=== PATIENT | female | born 2000 | race African-American/Black ===

== ENCOUNTER 2019-11-08 17:07 | Inpatient (IN) | payer OTHER ==
[~2019-11-08] VITALS: Ht 162.6 cm; Wt 77.6 kg
[2019-11-08 17:52] LABS: AMNIO PT NEGATIVE
[2019-11-08] MEDS: IV RINGERS,LACTATED 1000ML 1,000 ML IV PRN ×2 (17:52→20:05)
[2019-11-08 17:55] LABS: BILIRUBIN,URINE NEGATIVE (NEG); CLARITY,URINE CLOUDY; COLOR,URINE YELLOW; NITRITE,URINE NEGATIVE (NEG); PH,URINE 7.5 (<5.0-8.0); PROTEIN,URINE NEGATIVE (NEG-TRACE)
[2019-11-08] MEDS ORDERED: IV RINGERS,LACTATED 1000ML 1,000 ML IV SCH (17:55)
[2019-11-08] MEDS ORDERED: IBUPROFEN 400 MG TABLET. PO PRN (18:00)
[2019-11-08] MEDS ORDERED: fentaNYL PF VIAL 100 MCG/2 ML VIAL IVP PRN (18:00)
[2019-11-08] MEDS ORDERED: TERBUTALINE 1 MG/ML VIAL. SQ PRN (18:00)
[2019-11-08] MEDS ORDERED: 0.9 % SODIUM CHLORIDE 10 ML DISP.SYRIN. IV PRN (18:00)
[2019-11-08] MEDS ORDERED: AMPICILLIN SODIUM 2 GM in IV NORMAL SALINE 100ML 100 ML IV ONE (18:00)
[2019-11-08] MEDS ORDERED: OXYTOCIN 30 UNIT/500 ML PREMIX 500 ML IV PRN (18:00)
[2019-11-08] MEDS ORDERED: LIDOCAINE 1% PF 30 ML VIAL. INJ PRN (18:00)
[2019-11-08 18:06] LABS: BACTERIA,URINE MANY /HPF (0-FEW); RBC,URINE OCC /HPF (0-2); SQUAMOUS EPITHELIAL CELL,UR MANY /LPF; WBC,URINE TNTC /HPF (0-4)
[2019-11-08 18:09] LABS: BASO % 0 % (0-3); EOS # 0.1 x10^3/uL (0.0-0.7); EOS % 1 % (0-3); HEMATOCRIT 27.7 % (36.0-47.0); HEMOGLOBIN 9.1 g/dL (12.0-15.5); LYMPH # 1.4 x10^3/uL (1.0-4.8); LYMPH % 12 % (24-48); MEAN CORPUSCULAR HEMOGLOBIN 29 pg (25-35); MEAN CORPUSCULAR HGB CONC 33 g/dL (31-37); MEAN CORPUSCULAR VOLUME 86 fL (79-100); MONO # 0.7 x10^3/uL (0.0-1.1); MONO % 5 % (0-9); NEUT # 10.1 x10^3/uL (1.8-7.7); NEUT % 82 % (31-73); PLATELET COUNT 168 x10^3/uL (140-400); RED CELL DISTRIBUTION WIDTH 13.8 % (11.5-14.5); WHITE BLOOD COUNT 12.2 x10^3/uL (4.0-11.0)
[2019-11-08 18:13] LABS: BARBITURATES NEG (NEG); BENZODIAZEPINES NEG (NEG); CANNABINOIDS NEG (NEG); COCAINE NEG (NEG); METHADONE NEG (NEG); OPIATES NEG (NEG); PHENCYCLIDINE NEG (NEG)
[2019-11-08 18:14] LABS: AMPHETAMINE/METHAMPHETAMINE NEG (NEG)
[2019-11-08] MEDS: BETAMET ACET&NA PHOS 30 MG/5 ML VIAL. IM SCH (18:48)
[2019-11-08] MEDS ORDERED: ACETAMINOPHEN 500 MG TABLET PO PRN (19:45)
[2019-11-08] MEDS: AMPICILLIN SODIUM 1 GM in IV NORMAL SALINE 50ML 50 ML IV SCH (22:35)
[2019-11-09] MEDS: IV RINGERS,LACTATED 1000ML 1,000 ML IV PRN ×2 (00:23→20:32)
[2019-11-09 00:36] VITALS: BP 133/74
[2019-11-09] MEDS: BUTORPHANOL 2 MG/ML VIAL. IVP PRN ×3 (01:18→06:11)
[2019-11-09] MEDS: AMPICILLIN SODIUM 1 GM in IV NORMAL SALINE 50ML 50 ML IV SCH ×2 (02:45→06:11)
[2019-11-09] MEDS ORDERED: OXYTOCIN PREMIX 30 UNIT/500 ML NS BAG. IV ONE (08:00)
[2019-11-09] MEDS ORDERED: PHENYLEPH/MINERAL OIL/PETROLAT RECTAL OINTMENT TUBE. RC PRN (08:45)
[2019-11-09] MEDS ORDERED: TDaP (Adacel) per PROTOCOL. MC PRN (08:45)
[2019-11-09] MEDS ORDERED: MAG HYDROX/ALUMINUM HYD/SIMETH 30 ML ORAL.SUSP PO PRN (08:45)
[2019-11-09] MEDS ORDERED: BENZOCAINE 20% TOPICAL AEROSOL SPRAY 57GM CAN. TP PRN (08:45)
[2019-11-09] MEDS ORDERED: MAGNESIUM HYDROXIDE 2,400 MG/30 ML ORAL.SUSP. PO PRN (08:45)
[2019-11-09] MEDS ORDERED: MMR per PROTOCOL. MC PRN (08:45)
[2019-11-09] MEDS ORDERED: HYDROCORTISONE 1% TOPICAL OINTMENT 30GM TUBE. TP PRN (08:45)
[2019-11-09] MEDS ORDERED: DOCUSATE SODIUM 100 MG CAPSULE. PO PRN (08:45)
[2019-11-09] MEDS ORDERED: oxyCODONE/APAP 5/325 1 TAB TABLET PO PRN (08:45)
[2019-11-09] MEDS ORDERED: 0.9 % SODIUM CHLORIDE 10 ML DISP.SYRIN. IV PRN (08:45)
[2019-11-09] MEDS ORDERED: ZOLPIDEM 5 MG TABLET. PO PRN (08:45)
[2019-11-09] MEDS ORDERED: SIMETHICONE 80 MG TAB.CHEW PO PRN (08:45)
[2019-11-09] MEDS ORDERED: IBUPROFEN 400 MG TABLET. PO PRN (08:45)
[2019-11-09] MEDS ORDERED: ACETAMINOPHEN 325 MG TABLET. PO PRN (08:45)
[2019-11-09] MEDS ORDERED: diphenhydrAMINE HCL 25 MG CAPSULE PO PRN (08:45)
--- NOTE | 2019-11-09 08:49 | PDOC1 ---
[facility] H&P Date of Admission: Date of Admission: Nov 08, 2019 at 17:07 History of Present Illness: EDC: 12/15/19 LMP: 03/24/19 HPI: 19y @ 34.6 by 27wk u/s (per pt) who presented to L&D on 11/07 with LOF and ctxs. On presentation the pt was found to be 1-2 cm dilated. Her amino swab returned neg. Since the pt was ctxing every 1-2 min she was observed overnight. At around 1230 am the pt had SROM. At that time she had progressed to 2 cm dilated. When I arrived to L&D this morning 8 cm. Along with the ctxs the pt also was experiencing right flank. A UA was equivocal. Since the pt was being txed for PTL with Ampicillin that should cover a UTI as well. The pt never established care. The pt states that she had no symptoms of so she never knew she was . When she finally did have realize she may be she went to [facility]. She had an u/s that she was told that she was 27wks with an EDC of 12/15/19. She discussed adoption with them. She had her first visit scheduled for later this week. Past Medical History: PMH: PMH: Denies OBHx: G1 FH: noncontributory Past Surgical History: PSH: Denies Social History: Smoke: No ALCOHOL: none (1-2 cigs/day) Drugs: None Medications: Meds: Current Medications Medications (Trade) Dose Ordered Sig/Nolan Route PRN Reason Start Time Stop Time Status Last Admin Dose Admin Ampicillin Sodium 1 gm/Sodium Chloride 50 ml @ 100 mls/hr Q4H IV 11/08/19 22:00 11/09/19 06:11 Allergies: Coded Allergies: No Known Drug Allergies (Unverified , 11/08/19) Physical Exam: Vital Signs: Vital Signs Date Time Temp Pulse Resp B/P (MAP) Pulse Ox O2 Delivery O2 Flow Rate FiO2 11/09/19 06:11 18 Room Air 11/09/19 02:40 99 11/09/19 00:36 98.2 69 133/74 (93) 98.2 PE: GENERAL: No apparent distress. Alert and oriented. HEENT: Head normocephalic, atraumatic. NECK: Supple LUNGS: Clear to auscultation. HEART: RRR, S1, S2 present, pulses intact ABDOMEN: Soft, positive bowel sounds. BACK: Right flank pain EXTREMITIES: No cyanosis or edema. NEUROLOGIC: Normal speech, normal tone PSYCHIATRIC: Normal affect, normal mood. SKIN: No ulceration. FHT: 130s +acels/no decels/mLTV [place]: 1-2 min SVE: 8/C/0 Labs: Laboratory Tests Test 11/08/19 17:25 11/08/19 17:30 11/08/19 17:45 Urine Collection Type Unknown Urine Color Yellow Urine Clarity Cloudy Urine pH 7.5 (<5.0-8.0) Urine Specific Orange 1.020 (1.000-1.030) Urine Protein Negative mg/dL (NEG-TRACE) Urine Glucose (UA) Negative mg/dL (NEG) Urine Ketones (Stick) >=80 mg/dL (NEG) Urine Blood Negative (NEG) Urine Nitrite Negative (NEG) Urine Bilirubin Negative (NEG) Urine Urobilinogen Dipstick 1.0 mg/dL (0.2 mg/dL) Urine Leukocyte Esterase Moderate (NEG) Urine RBC Occ /HPF (0-2) Urine WBC Tntc /HPF (0-4) Urine Squamous Epithelial Cells Many /LPF Urine Bacteria Many /HPF (0-FEW) Urine Mucus Mod /LPF Urine Opiates Screen Neg (NEG) Urine Methadone Screen Neg (NEG) Urine Barbiturates Neg (NEG) Urine Phencyclidine Screen Neg (NEG) Urine Amphetamine/Methamphetamine Neg (NEG) Urine Benzodiazepines Screen Neg (NEG) Urine Cocaine Screen Neg (NEG) Urine Cannabinoids Screen Neg (NEG) Urine Ethyl Alcohol Neg (NEG) Amniotic Fluid Swab Test Negative White Blood Count 12.2 x10^3/uL (4.0-11.0) H Red Blood Count 3.20 x10^6/uL (3.50-5.40) L Hemoglobin 9.1 g/dL (12.0-15.5) L Hematocrit 27.7 % (36.0-47.0) L Mean Corpuscular Volume 86 fL (79-100) Mean Corpuscular Hemoglobin 29 pg (25-35) Mean Corpuscular Hemoglobin Concent 33 g/dL (31-37) Red Cell Distribution Width 13.8 % (11.5-14.5) Platelet Count 168 x10^3/uL (140-400) Neutrophils (%) (Auto) 82 % (31-73) H Lymphocytes (%) (Auto) 12 % (24-48) L Monocytes (%) (Auto) 5 % (0-9) Eosinophils (%) (Auto) 1 % (0-3) Basophils (%) (Auto) 0 % (0-3) Neutrophils # (Auto) 10.1 x10^3/uL (1.8-7.7) H Lymphocytes # (Auto) 1.4 x10^3/uL (1.0-4.8) Monocytes # (Auto) 0.7 x10^3/uL (0.0-1.1) Eosinophils # (Auto) 0.1 x10^3/uL (0.0-0.7) Basophils # (Auto) 0.0 x10^3/uL (0.0-0.2) Treponema pallidum Antibody Nonreactive (Nonreactive) Hepatitis B Surface Antigen Nonreactive (Nonreactive) Hepatitis C IgG Antibody Pending Laboratory Tests 11/08/19 17:45 Laboratory Tests 11/08/19 17:45 Assessment & Plan: A/P 19y @ 34.6 by 27wk u/s 1.) PTL vs PTC no cervical change room attendant the first few hours of admission, since regularly ctxing was admitted for steroid course, over the night the pt transitioned to active labor, SROM at ~1230 2.) Right flank pain UA equivocal, no WBC, no f/c, will not continue abx after delivery unless cx returns positive 3.) No care drop in labs ordered 4.) Fetus cat I FHT, vtx, BSUS performed revealing a gestational age of 35- 36wks, BMTZ #1 @ 1830 5.) GBS unk on Amp for PTL 6.) Adoption WOOD GOLDMAN MD Nov 09, 2019 08:49
--- NOTE | 2019-11-09 08:55 | PDOC ---
VAGINAL DELIVERY DATE DATE: 11/09/19 TIME: 08:54 WEIGHT Weight [ ] DIAGNOSIS Patient delivered a viable female over intact perineum at 1822. Infant bulb suctioned at perineum. Cord double clamped and cut and infant handed to waiting RN. Wt 5lb 10oz. Apgars 8/9. Placenta delivered spontaneously, intact with 3VC. No lacerations noted. 20U of Pitocin infused with IVF. EBL 200cc. Cord ABG pending WOOD GOLDMAN MD Nov 09, 2019 08:55
[2019-11-09] MEDS ORDERED: OXYTOCIN 30 UNIT/500 ML PREMIX 500 ML IV PRN (09:00)
[2019-11-09 10:35] VITALS: BP 125/71
[2019-11-09 11:40] VITALS: BP 111/60
--- NOTE | 2019-11-09 15:20 | NUR ---
SS following up with referral regarding "plans to place baby for adoption." SS met with mother and Conchis Meyers, , from [facility]. Mother reported that is being placed for adoption. Adoptive parents, Shasta and Ac, driving to hospital from [place]. Conchis Meyers notified that we will need appropriate legal documents for infants chart prior to being released to adoptive parents. Conchis working to obtain needed legal documents from engineering pattern[employer]. SS will continue to follow.
[2019-11-09 15:33] VITALS: BP 117/54
[2019-11-09 16:20] VITALS: BP 119/53
[2019-11-09] MEDS: BETAMET ACET&NA PHOS 30 MG/5 ML VIAL. IM SCH (18:30)
[2019-11-10 03:58] VITALS: BP 108/47
[2019-11-10 05:30] VITALS: BP 115/51
[2019-11-10 05:39] LABS: HEMATOCRIT 22.5 % (36.0-47.0); HEMOGLOBIN 7.4 g/dL (12.0-15.5)
--- NOTE | 2019-11-10 10:09 | NUR ---
SS following up with adoption. SS met with mother and color specialist, Conchis Meyers, . SS was provided with parental relinquishment of rights, power of area representative and temporary custody papers for adoptive parents, Jacqueline Solorio, and adoption agency agreement. Copies placed in mother and chart. Adoptive parents currently boarding. SS will continue to follow as needed.
[2019-11-10] MEDS ORDERED: FERR325T14 PO (11:05)
[2019-11-10] MEDS ORDERED: IBUP-1060 PO (11:05)
[2019-11-10] MEDS ORDERED: DOCU-109 PO (11:05)
--- NOTE | 2019-11-10 11:35 | PDOC ---
SENIOR SALES ASSISTANT PROGRESS NOTE Subjective: Pt with good pain control. Halie PO. Voiding. Minimal lochia. The pt states flank pain no longer present. Denies f/c Objective: Objective: FFNT below umb no C/C/E Vital Signs: Vital Signs Date Time Temp Pulse Resp B/P (MAP) Pulse Ox O2 Delivery O2 Flow Rate FiO2 11/09/19 10:35 98.3 61 18 125/71 (89) 99 98.3 11/09/19 20:15 Room Air Vital Signs Date Time Temp Pulse Resp B/P (MAP) Pulse Ox O2 Delivery O2 Flow Rate FiO2 11/10/19 05:30 97.9 68 18 115/51 (72) 98 Room Air 97.9 Labs: Laboratory Tests Test 11/10/19 04:45 Hemoglobin 7.4 g/dL (12.0-15.5) L Hematocrit 22.5 % (36.0-47.0) L Mean Corpuscular Hemoglobin Concent 33 g/dL (31-37) Laboratory Tests 11/10/19 04:45 Laboratory Tests 11/10/19 04:45 Physical Exam: GENERAL: No apparent distress. Alert and oriented. HEENT: Head normocephalic, atraumatic. NECK: Supple LUNGS: Clear to auscultation. HEART: RRR, S1, S2 present, pulses intact ABDOMEN: Soft, positive bowel sounds. EXTREMITIES: No cyanosis or edema. NEUROLOGIC: Normal speech, normal tone PSYCHIATRIC: Normal affect, normal mood. SKIN: No ulceration. Assessment & Plan: A/P 19y PPD #1 s/p at 34.6 1.) PP - doing well 2.) Right flank pain pain resolved, UA equivocal, no WBC, no f/c, UCx pending 3.) No care 4.) Adoption - paperwork complete 5.) D/c home WOOD GOLDMAN MD Nov 10, 2019 11:35
--- NOTE | 2019-11-10 11:38 | NUR ---
Discharge Discharge instructions given to patient and friend. To follow up in [address] Villa. Patient ambulated off unit with all belongings.
--- NOTE | 2019-11-10 16:09 | DS ---
DATE OF DISCHARGE: 11/10/2019 ADMISSION DIAGNOSES: 1. Intrauterine at 34 weeks and 5 days by 27-week ultrasound. 2. labor versus contractions. 3. Right flank pain. 4. No care. 5. GBS unknown. 6. Plans for adoption. DISCHARGE DIAGNOSES: 1. Intrauterine at 34 weeks and 5 days by 27-week ultrasound. 2. labor. 3. Right flank pain, resolved. 4. No care. 5. GBS unknown. 6. Plans for adoption PROCEDURE: Spontaneous vaginal delivery. BRIEF HOSPITAL COURSE: The patient is a 19-year-old 1, para 0, who presented to Labor and Delivery at 34 weeks and 5 days by 27-week ultrasound with leakage of fluid and contractions. On presentation, the patient was found to be 1-2 cm dilated and an amnio swab was performed, which ultimately returned negative. The patient was blessing every 1-2 minutes. So, even though she was not changing, it was felt that there was a good potential that the patient might be in latent labor. So, the patient was given a dose of steroids as well as monitored over the night. Around 12:30 a.m., the patient had spontaneous rupture of membranes and progressed to 2. Over the course of the night, the patient progressed well and ultimately delivered by vaginal delivery the following morning. Of note, on admission, the patient was experiencing some right flank plain. A UA was sent, which returned equivocal. The possibility of a UTI or pyelonephritis was covered with ampicillin during the course of her labor. Since the symptoms resolved and she remained without white count or any fevers or chills, the ampicillin was continued after delivery. Her urine culture had not returned by the time of her discharge time, so was to be followed up on as an outpatient. Also of note, the patient had no care throughout the . [facility] had [facility] and she was given an EDC of 12/15/2019, which was roughly by a 27-week ultrasound. A bedside ultrasound was performed on admission, and she was measuring about 35-36 weeks. By day #1, the patient was meeting all discharge criteria and since she has given the baby up for adoption, desired to go home. The patient was subsequently discharged home. DISCHARGE INSTRUCTIONS: The patient was told not to lift anything greater than 20 pounds, have pelvic rest for 6 weeks. The patient is to call if she had fevers, chills, nausea, vomiting, abdominal pain or any additional questions or concerns. FOLLOWUP APPOINTMENT: The patient was to follow up with Dr. Goldman for a appointment on 12/23/2019 at 1:30 p.m. DISCHARGE MEDICATIONS: The patient was given a prescription for Motrin 800 mg 30 pills, ferrous sulfate 325 mg 30 pills and Colace 100 mg 30 pills. WOOD GOLDMAN MD DR: RAMYA/nts JOB#: [id number] / [id number]
--- NOTE | 2019-11-12 11:07 | PATHOLOGY ---
[facility] Accession Number: [id number] . 01 Material submitted: . placenta - PLACENTA AND CORD . 01 Clinical history: . Spontaneous vaginal delivery L1, labor, 34.6 weeks No care EDC: 12/15/2019 8, 9, 9 . 02 Diagnosis: 426 gram late placenta of an estimated 35 weeks gestation with attached membranes and umbilical cord: - No significant pathologic abnormalities. LBQ 11/11/2019 1733 Local . 02 Comment: There is no evidence of an acute chorioamnionitis or villitis. There are no infarcts. (JPM/db; 11/11/2019) . 02 Electronically signed: . Blaze Sharma MD, Pathologist NPI- [id number] . 01 Gross description: . The specimen is received in formalin labeled "Li, Katie, placenta and cord" and consists of a circular melgoza placenta measuring 15.8 x 14.8 x 3.0 cm and weighing 426 g after removal of membranes and umbilical cord. The membranes are pink-tolbert, thin, and translucent with a small amount of retro-membranous clot. The surface is bluegray and well vascularized with an eccentrically inserted 3 vessel umbilical cord, 3.5 cm from edge. The cord measures 13.3 cm in length and up to 1.0 cm in diameter showing moderate twists and no true knots. The maternal surface shows complete and intact cotyledons with a small amount of adherent blood clot. Sectioning reveals a maroon-red and spongy parenchyma with no gross lesions. Videographer sections are submitted as follows: . A1: Surface vessels and umbilical cord A2: Umbilical cord and membrane rolls A3-A4 full-thickness sections (SDY; 11/10/2019) SYU/SYU 11/10/2019 1556 Local . 02 Pathologist provided ICD-10: O80, Z37.0, Z3A.34 . 02 CPT . 741981 Specimen Comment: A courtesy copy of this report has been sent to [phone] Specimen Comment: Report sent to Performed at: [address], [place] [id number] MD Ramses Rodriguez MD Phone: [phone] Performed at: [address] [facility] [address] [place], [place] [id number] MD Blaze Sharma MD Phone: [phone]
== END 2019-11-10 11:47 | disposition home or self-care (01) | DRG 805 ==
LOC: OBSVTOIN 17:07 → 3 SO LND 17:07 → 3 NORTH 11-09 11:26
PROVIDERS: ADMIT Obstetrics & Gynecology; ATTEND Obstetrics & Gynecology
PROC: 10E0XZZ Delivery of Products of Conception, External Approach (ICD-10-PCS; principal; 2019-11-10)
DX: O42.913 Preterm premature rupture of membranes, unspecified as to length of time between rupture and onset of labor, third trimester (principal); O60.14X0 Preterm labor third trimester with preterm delivery third trimester, not applicable or unspecified; Z37.0 Single live birth; O23.43 Unspecified infection of urinary tract in pregnancy, third trimester; O99.334 Smoking (tobacco) complicating childbirth; F17.210 Nicotine dependence, cigarettes, uncomplicated; Z3A.34 34 weeks gestation of pregnancy
CPT/HCPCS: 36415; 80307; 81001; 84112; 85014; 85018; 85025; 86592; 86703; 86762; 86803; 86850; 86900; 86901; 87086; 87340; 87653; 99285; J0290; J0595; J0702; J2590; J3010; J7120; G0378

== ENCOUNTER 2020-01-21 14:17 | Emergency (ER) | payer OTHER ==
[~2020-01-21] VITALS: Ht 162.6 cm; Wt 71.3 kg
[~2020-01-21 14:17] MED LIST: DOCU-109 PO; FERR325T14 PO; IBUP-1060 PO
--- NOTE | 2020-01-21 15:06 | PHYS DOC ---
Past Medical History Past Medical History: No Pertinent History Past Surgical History: No Surgical History Smoking Status: Never Smoker Alcohol Use: None General Adult EDM: Chief Complaint: DIZZY/LIGHT HEADED HPI: HPI: Patient is a 19 year old female who presents with dizziness and chest pain while she was working earlier today. Patient is 2 months . She has had this 1 previous time 5 months ago. She is now feeling back to normal. She felt like she was in a pass out and had chest tightness and shortness of breath. She denies any swelling. She denies any recent illnesses. She does not have any URI symptoms, fever, chills, shortness of breath, neck pain, headache. Review of Systems: Review of Systems: General: Denies fever, chills, sweats, fatigue Eyes: Denies drainage, blurred vision, eye redness HENT: Denies rhinorrhea, sore throat, earache Respiratory: Denies cough, shortness of breath, wheezing Cardiac: Denies edema, palpitation. Reports chest pain GI: Denies abdominal pain, Nausea, vomiting MSK: Denies back pain, neck pain Skin: Denies rash, jaundice Neuro: Denies headache.reports dizziness Psychiatric: Denies SI/HI Heart Score: Risk Factors: Risk Factors: DM, Current or recent (<one month) smoker, HTN, HLP, family history of CAD, obesity. Risk Scores: Score 0 - 3: 2.5% MACE over next 6 weeks - Discharge Home Score 4 - 6: 20.3% MACE over next 6 weeks - Admit for Clinical Observation Score 7 - 10: 72.7% MACE over next 6 weeks - Early Invasive Strategies Allergies: Allergies: Allergies Coded Allergies Type Severity Reaction Last Updated Verified No Known Drug Allergies 11/08/19 No Physical Exam: PE: General: Awake, alert, NAD. Well Nourished, well hydrated. Cooperative HEENT: Atraumatic, EOMI, PERRL, airway patent, moist oral mucosa Neck: Supple, trachea midline Respiratory: CTA bilaterally, normal effort, no wheezing/crackles CV: RRR, no murmur, cap refill <2 GI: Soft, nondistended, nontender, no masses MSK: No obvious deformities Skin: Warm, dry, intact Neuro: A&O x3, speech NL, sensory and motor grossly intact, no focal deficits Psych: Normal affect, normal mood, not suicidal or homicidal Current Patient Data: Vital Signs: Vital Signs Date Time Temp Pulse Resp B/P (MAP) Pulse Ox O2 Delivery O2 Flow Rate FiO2 01/21/20 14:17 98.2 67 14 135/85 (102) 100 Room Air 98.2 EKG: EKG: [] Radiology/Procedures: Radiology/Procedures: [] Course & Med Decision Making: Course & Med Decision Making Pertinent Labs and Imaging studies reviewed. (See chart for details) Patient is 19-year-old female presents to the emergency room after having an episode of chest tightness and dizziness. Patient is feeling much better at this time. Exam is benign. She is 2 months so her cardiac work-up was done. Chest x-ray was normal. Troponin and BNP are negative. Patient does not appear to have cardiomyopathy. This was likely a panic attack. Patient's test results and vitals while in the ED were fully reviewed and discussed with the patient. Patient is stable and at this time does not need admission to the hospital. We have discussed strict return precautions and the importance of following up with their Primary Care Physician. Patient stated understanding and was given an opportunity to ask any questions. Patient is in agreement with plan. Dragon Disclaimer: Dragon Disclaimer: This electronic medical record was generated, in whole or in part, using a voice recognition dictation system. Departure Departure Impression: Primary Impression: Dizziness Additional Impression: Chest pain Disposition: 01 HOME, SELF-CARE Condition: GOOD Referrals: NO PCP (PCP) Patient Instructions: Chest Pain (Nonspecific) Justicifation of Admission Dx: Justifications for Admission: Justification of Admission Dx: No ATIF MANE MD Jan 21, 2020 15:06
--- NOTE | 2020-01-21 15:24 | EKG ---
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
[2020-01-21 15:32] LABS: BASO % 0 % (0-3); EOS # 0.2 x10^3/uL (0.0-0.7); EOS % 2 % (0-3); HEMATOCRIT 32.9 % (36.0-47.0); HEMOGLOBIN 11.2 g/dL (12.0-15.5); LYMPH # 2.4 x10^3/uL (1.0-4.8); LYMPH % 31 % (24-48); MEAN CORPUSCULAR HEMOGLOBIN 27 pg (25-35); MEAN CORPUSCULAR HGB CONC 34 g/dL (31-37); MEAN CORPUSCULAR VOLUME 79 fL (79-100); MONO # 0.6 x10^3/uL (0.0-1.1); MONO % 8 % (0-9); NEUT # 4.5 x10^3/uL (1.8-7.7); NEUT % 59 % (31-73); PLATELET COUNT 388 x10^3/uL (140-400); RED BLOOD COUNT 4.17 x10^6/uL (3.50-5.40); RED CELL DISTRIBUTION WIDTH 15.8 % (11.5-14.5); WHITE BLOOD COUNT 7.7 x10^3/uL (4.0-11.0)
[2020-01-21 15:43] LABS: CALCIUM 8.8 mg/dL (8.5-10.1); CREATININE 0.9 mg/dL (0.6-1.0); GFR 96.6; POTASSIUM 3.4 mmol/L (3.5-5.1)
--- NOTE | 2020-01-21 15:55 | RAD ---
PA and lateral chest. HISTORY: Chest pain PA and lateral views were taken of the chest. Lungs are clear. Heart is normal in size. There is no pleural effusion. IMPRESSION: 1. No acute chest disease. Electronically signed by: Imer Estes MD (01/21/2020 3:52 PM) [facility]
[2020-01-21 16:16] LABS: BILIRUBIN,URINE NEGATIVE (NEG); CLARITY,URINE CLEAR; COLOR,URINE YELLOW; NITRITE,URINE NEGATIVE (NEG); PH,URINE 6.5 (<5.0-8.0); PROTEIN,URINE NEGATIVE (NEG-TRACE)
[2020-01-21 16:32] LABS: BACTERIA,URINE MOD /HPF (0-FEW); RBC,URINE 0 /HPF (0-2); SQUAMOUS EPITHELIAL CELL,UR MOD /LPF; WBC,URINE 20-40 /HPF (0-4)
[2020-01-21 17:10] VITALS: BP 127/57
== END 2020-01-21 17:03 | disposition home or self-care (01) ==
LOC: ER 14:17
DX: R42 Dizziness and giddiness (principal); R07.89 Other chest pain
CPT/HCPCS: 36415; 71046; 80048; 81001; 81025; 83880; 84484; 85025; 93005; 99285-25

== ENCOUNTER 2020-08-10 17:35 | Emergency (ER) | payer OTHER ==
[~2020-08-10] VITALS: Ht 160 cm; Wt 71.3 kg
[2020-08-10 18:02] VITALS: BP 139/63
[2020-08-10] MEDS: IBUPROFEN 200 MG TABLET. PO ONE (18:19)
--- NOTE | 2020-08-10 18:28 | PHYS DOC ---
Past Medical History Past Medical History: No Pertinent History Past Surgical History: No Surgical History Smoking Status: Never Smoker Alcohol Use: None General Adult EDM: Chief Complaint: ANXIETY/PANIC ATTACK HPI: HPI: Patient is a 20 year old female who presents with states this morning awoke and felt some pain in her chest with palpation and with movement of her upper extremities but it went away and she went to work. 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 Patient states she has panic attacks in the past. She states that her pain is at a 3 out of 10 in her chest and it is mainly with movement and palpation and it is a sore type aching feeling. Patient denies dizziness, headache, syncope, shortness of breath, diarrhea, abdominal pain, nausea, vomiting, fever, nasal congestion. She denies having asthma. She does smoke. Review of Systems: Review of Systems: Constitutional: Denies fever or chills. [] Eyes: Denies change in visual acuity. [] HENT: Denies nasal congestion or sore throat. [] Respiratory: Denies cough or +shortness of breath or +hyperventilation during panic attack. [] Cardiovascular: + chest pain or denies edema. [] GI: Denies abdominal pain, nausea, vomiting, bloody stools or diarrhea. [] : Denies dysuria. [] Musculoskeletal: Denies back pain or joint pain. [] Integument: Denies rash. [] Neurologic: Denies headache, focal weakness or sensory changes. [] Endocrine: Denies polyuria or polydipsia. [] Lymphatic: Denies swollen glands. [] Psychiatric: Denies depression or anxiety. + Panic attack [] Heart Score: Risk Factors: Risk Factors: DM, Current or recent (<one month) smoker, HTN, HLP, family history of CAD, obesity. Risk Scores: Score 0 - 3: 2.5% MACE over next 6 weeks - Discharge Home Score 4 - 6: 20.3% MACE over next 6 weeks - Admit for Clinical Observation Score 7 - 10: 72.7% MACE over next 6 weeks - Early Invasive Strategies Current Medications: Current Medications Medications (Trade) Dose Ordered Sig/Nolan Start Time Stop Time Status Last Admin Dose Admin Ibuprofen (Motrin) 600 mg 1X ONCE 08/10/20 18:15 08/10/20 18:16 DC 08/10/20 18:19 600 MG Allergies: Allergies: Allergies Coded Allergies Type Severity Reaction Last Updated Verified No Known Drug Allergies 11/08/19 No Physical Exam: PE: Constitutional: Well developed, well nourished, no acute distress, non-toxic appearance. [] HENT: Normocephalic, atraumatic, bilateral external ears normal, oropharynx moist, no oral exudates, nose normal. [] Eyes: PERRLA, EOMI, conjunctiva normal, no discharge. [] Neck: Normal range of motion, no tenderness, supple, no stridor. [] Cardiovascular:Heart rate regular rhythm, no murmur. Pain over mid chest when palpation and having patient move her upper extremities. [] Lungs & Thorax: Bilateral breath sounds clear to auscultation [] Abdomen: Bowel sounds normal, soft, no tenderness, no masses, no pulsatile masses. [] Skin: Warm, dry, no erythema, no rash. [] Back: No tenderness, no CVA tenderness. [] Extremities: No tenderness, no cyanosis, no clubbing, ROM intact, no edema. [] Neurologic: Alert and oriented X 3, normal motor function, normal sensory function, no focal deficits noted. [] Psychologic: Affect normal, judgement normal, mood normal. [] Current Patient Data: Vital Signs: Vital Signs Date Time Temp Pulse Resp B/P (MAP) Pulse Ox O2 Delivery O2 Flow Rate FiO2 08/10/20 18:02 97.0 68 16 139/63 (88) 97 Room Air 97.0 EKG: EK and read by Dr Ocampo as Sinus Rhythm and no STEMI Radiology/Procedures: Radiology/Procedures: [] Impression: [facility] [address] [place], [place] [id number] IMAGING REPORT Signed PATIENT: SULAIMAN PARHAM ACCOUNT: [id number] : 2000 LOCATION: ER AGE: 20 SEX: F EXAM STATUS: REG ER ORD. PHYSICIAN: RAFIQ YAP APRN REASON: CHEST PAIN PROCEDURE: CHEST PA & LATERAL EXAM: PA and Lateral Views of the Chest DATE: 08/10/2020 6:47 PM INDICATION: Reason: CHEST PAIN / Spl. Instructions: / History: COMPARISON: 01/21/2020 FINDINGS: The heart is not enlarged. Mediastinal and hilar contours are normal. No focal parenchymal airspace opacity. No pleural effusion or pneumothorax. IMPRESSION: 1. No radiographic evidence for acute cardiopulmonary process. Electronically signed by: Luis Almendarez MD (08/10/2020 7:43 PM) [facility] DICTATED and SIGNED BY: LUIS ALMENDAREZ MD DATE: 08/10/20 [id number] Course & Med Decision Making: Course & Med Decision Making Pertinent Labs and Imaging studies reviewed. (See chart for details) See HPI. Alert and oriented x4. Ambulatory with a steady gait. Speaks in full complete sentences. Chest pain is reproducible with movement and palpation over the mid chest. It does not radiate anywhere else. Lungs are clear to auscultation in all lobes. Vital signs within normal limits. Ambulatory with a steady gait. Skin pink warm and dry. No extremity edema. She states that her symptoms have pretty much resolved. Well's and PERC negative. EKG shows sinus rhythm and no STEMI. Chest x-ray shows no acute findings. Patient will go home to follow-up with a primary care provider. [] Jory Disclaimer: Jory Disclaimer: This electronic medical record was generated, in whole or in part, using a voice recognition dictation system. Departure Departure Impression: Primary Impression: Panic attack Additional Impression: Chest pain, musculoskeletal Disposition: 01 DC HOME SELF CARE/HOMELESS Condition: STABLE Referrals: NO PCP (PCP) Patient Instructions: Anxiety and Panic Attacks, Chest Wall Pain Additional Instructions: Follow up with a primary care provider. Drink plenty of fluids. Stop smoking. Take ibuprofen for your pain. RAFIQ YAP APRN Aug 10, 2020 18:28
[2020-08-10 18:39] LABS: BARBITURATES NEG (NEG); BENZODIAZEPINES NEG (NEG); CANNABINOIDS POS (NEG); COCAINE NEG (NEG); METHADONE NEG (NEG); OPIATES NEG (NEG); PHENCYCLIDINE NEG (NEG)
[2020-08-10 18:46] LABS: AMPHETAMINE/METHAMPHETAMINE NEG (NEG)
--- NOTE | 2020-08-10 19:46 | RAD ---
EXAM: PA and Lateral Views of the Chest DATE: 08/10/2020 6:47 PM INDICATION: Reason: CHEST PAIN / Spl. Instructions: / History: COMPARISON: 01/21/2020 FINDINGS: The heart is not enlarged. Mediastinal and hilar contours are normal. No focal parenchymal airspace opacity. No pleural effusion or pneumothorax. IMPRESSION: 1. No radiographic evidence for acute cardiopulmonary process. Electronically signed by: Luis Herbert MD (08/10/2020 7:43 PM) [facility]
--- NOTE | 2020-08-11 05:24 | EKG ---
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
== END 2020-08-10 19:58 | disposition home or self-care (01) ==
LOC: ER 17:35
DX: F41.0 Panic disorder [episodic paroxysmal anxiety] (principal); R07.89 Other chest pain; R06.02 Shortness of breath
CPT/HCPCS: 71046; 80307; 81025; 93005; 99284; 99285-25

== ENCOUNTER 2020-10-18 00:52 | Emergency (ER) | payer OTHER ==
[~2020-10-18] VITALS: Ht 162.6 cm; Wt 75.9 kg
[2020-10-18] MEDS ORDERED: LIDOCAINE 1% PF 5 ML VIAL. INJ ONE (01:15)
[2020-10-18] MEDS ORDERED: LIDOCAINE/EPI/TETRACAINE TOPICAL GEL 3 ML. TP ONE (01:15)
[2020-10-18] MEDS ORDERED: SULF1TAB24 PO (01:45)
--- NOTE | 2020-10-18 01:45 | PHYS DOC ---
Past Medical History Past Medical History: No Pertinent History Past Surgical History: No Surgical History Smoking Status: Never Smoker Alcohol Use: None General Adult EDM: Chief Complaint: VAGINAL PROBLEM HPI: HPI: Patient is a 20 year old female presents with the chief complaint of abscess in groin. Abscess onset x 3-4 days and progressive becoming larger and more painful. Review of Systems: Review of Systems: Review of systems: Constitutional symptoms- No fever, no chills. Eyes- No Discharge, No Visual Loss Respiratory symptoms- No shortness of breath, No wheezing, No Dyspnea on Exertion Cardiovascular Systems; No chest pain, No Palpitations, No syncope Gastrointestinal symptoms: NO abdominal pain, no nausea, no vomiting or diarrhea. Genitourinary symptoms: No dysuria. Musculoskeletal symptoms: No back pain No extremity pain. NEUROLOGICAL Symptoms: No headache, no generalized weakness; No focal Weakness Skin positive abscess Heart Score: C/O Chest Pain: N/A Risk Factors: Risk Factors: DM, Current or recent (<one month) smoker, HTN, HLP, family history of CAD, obesity. Risk Scores: Score 0 - 3: 2.5% MACE over next 6 weeks - Discharge Home Score 4 - 6: 20.3% MACE over next 6 weeks - Admit for Clinical Observation Score 7 - 10: 72.7% MACE over next 6 weeks - Early Invasive Strategies Current Medications: Current Medications Medications (Trade) Dose Ordered Sig/Nolan Start Time Stop Time Status Last Admin Dose Admin Lidocaine HCl (Xylocaine-Mpf 1% 5ml Vial) 5 ml 1X ONCE 10/18/20 01:15 10/18/20 01:17 DC 10/18/20 01:28 5 ML Tetracaine/ Epinephrine/ Lidocaine (Let (Ksvg-Ymskryg-Lpana) Gel) 3 ml 1X ONCE 10/18/20 01:15 10/18/20 01:17 DC 10/18/20 01:28 3 ML Allergies: Allergies: Allergies Coded Allergies Type Severity Reaction Last Updated Verified No Known Drug Allergies 11/08/19 No Physical Exam: PE: General: alert, no acute distress. Skin: warm, dry and intact. Head:: Normocephalic, atraumatic. Neck: Trachea midline. Eyes: EOMI, Normal conjunctiva, No drainage CARDIOVASCULAR: Regular rate and rhythm RESPIRATORY: No respiratory distress Back: Full range of motion. MUSCULOSKELETAL: Full range of motion of bilateral upper and lower extremities. GASTROINTESTINAL: Abdomen soft without rebound or guarding. NEUROLOGICAL: Alert and noted to person, place and time. No neurological deficits observed Psychiatric: Cooperative. Normal judgment Skin 3 cm abscess formation suprapubic Current Patient Data: Vital Signs: Vital Signs Date Time Temp Pulse Resp B/P (MAP) Pulse Ox O2 Delivery O2 Flow Rate FiO2 10/18/20 01:05 98.2 75 18 115/75 (88) 100 Room Air 98.2 EKG: EKG: [] Radiology/Procedures: Radiology/Procedures: [] Course & Med Decision Making: Course & Med Decision Making Pertinent Labs and Imaging studies reviewed. (See chart for details) [] Let was used topically for anesthesia once anesthesia was achieved approximately 4 cc 2% lidocaine injected 11 blade was used to make a 0.25 cm incision Large amount of pus drained Wound was flushed with normal saline Due to size of abscess and location was not able to pack. Wound was dressed by nursing. Patient discharged home with Bactrim. Patient advised to take Tylenol ibuprofen as needed for pain Dragon Disclaimer: Dragon Disclaimer: This electronic medical record was generated, in whole or in part, using a voice recognition dictation system. Departure Departure Impression: Primary Impression: Abscess Disposition: 01 HOME SELF CARE/HOMELESS Condition: STABLE Referrals: PITA BUSTOS MD (PCP) Patient Instructions: Abscess Scripts Tramadol Hcl (ULTRAM) 50 Mg Tablet 1 TAB PO PRN Q6HRS PRN for pain MDD 4 Tablet(s) for 7 Days, #20 TAB 0 Refills Prov: LAWSON BRENNER DO 10/18/20 Sulfamethoxazole/Trimethoprim (BACTRIM DS TABLET) 1 Each Tablet 1 TAB PO BID for 10 Days, #20 TAB 0 Refills Prov: LAWSON BRENNER DO 10/18/20 LAWSON BRENNER DO Oct 18, 2020 01:45
[2020-10-18] MEDS ORDERED: TRAM-48 PO (02:23)
[2020-10-18 02:35] VITALS: BP 112/72
== END 2020-10-18 02:35 | disposition home or self-care (01) ==
LOC: ER 00:52
DX: L02.214 Cutaneous abscess of groin (principal)
CPT/HCPCS: 10060; 99283; J3490

== ENCOUNTER 2020-10-19 14:53 | Emergency (ER) | payer OTHER ==
[~2020-10-19] VITALS: Ht 162.6 cm; Wt 75.9 kg
[~2020-10-19 14:53] MED LIST changes: +SULF1TAB24 PO; +TRAM-48 PO
[2020-10-19 15:55] VITALS: BP 118/75
--- NOTE | 2020-10-19 16:28 | PHYS DOC ---
Past Medical History Past Medical History: No Pertinent History Past Surgical History: No Surgical History Smoking Status: Never Smoker Alcohol Use: None General Adult EDM: Chief Complaint: WOUND CHECK HPI: HPI: Patient is a 20 year old female no school for medical history presenting today complaining of an abscess on the left pubic region that was drained yesterday that she feels is itching and still draining. Denies any fever. She is also complaining of vaginal spotting that began today. She states her last menstrual cycle was October 09, 2020. Denies any chance she is . Review of Systems: Review of Systems: Constitutional: Denies fever or chills. [] GI: Denies abdominal pain, nausea, vomiting, bloody stools or diarrhea. [] : Reports vaginal spotting denies dysuria. [] Musculoskeletal: Denies back pain or joint pain. [] Integument: Reports left pubic abscess is still draining and itching. Neurologic: Denies headache, focal weakness or sensory changes. [] Psychiatric: Denies depression or anxiety. [] Heart Score: C/O Chest Pain: N/A Risk Factors: Risk Factors: DM, Current or recent (<one month) smoker, HTN, HLP, family history of CAD, obesity. Risk Scores: Score 0 - 3: 2.5% MACE over next 6 weeks - Discharge Home Score 4 - 6: 20.3% MACE over next 6 weeks - Admit for Clinical Observation Score 7 - 10: 72.7% MACE over next 6 weeks - Early Invasive Strategies Allergies: Allergies: Allergies Coded Allergies Type Severity Reaction Last Updated Verified No Known Drug Allergies 11/08/19 No Physical Exam: PE: Constitutional: Well developed, well nourished, no acute distress, non-toxic appearance. [] Abdomen: Bowel sounds normal, soft, no tenderness, no masses, no pulsatile mass es. [] Skin: Left pubic region with an open wound roughly 0.5 x 0.5 cm with trace drainage, no fluctuance. Back: No tenderness, no CVA tenderness. [] Extremities: No tenderness, no cyanosis, no clubbing, ROM intact, no edema. [] Neurologic: Alert and oriented X 3, normal motor function, normal sensory function, no focal deficits noted. [] Psychologic: Affect normal, judgement normal, mood normal. [] Current Patient Data: Labs: Laboratory Tests Test 10/19/20 16:13 POC Urine HCG, Qualitative Hcg negative (Negative) Vital Signs: Vital Signs Date Time Temp Pulse Resp B/P (MAP) Pulse Ox O2 Delivery O2 Flow Rate FiO2 10/19/20 15:55 98.7 69 16 118/75 (89) 98 Room Air 98.7 EKG: EKG: [] Radiology/Procedures: Radiology/Procedures: [] Course & Med Decision Making: Course & Med Decision Making Pertinent Labs and Imaging studies reviewed. (See chart for details) This is a 20-year-old female patient presenting to the ED today complaining of drainage and itching from an abscess she had drained yesterday in the ED on the left pubic region. Abscess appears to be healing very well. Encourage her to continue taking her antibiotics Bactrim. She is also concerned she is spotting today. Her last menstrual cycle was October 09, 2020. Negative urine hCG. Instructed to follow-up with her ED [employer] for dysfunctional uterine bleeding. Dragon Disclaimer: Dragveronika Disclaimer: This electronic medical record was generated, in whole or in part, using a voice recognition dictation system. Departure Departure Impression: Primary Impression: Dysfunctional uterine bleeding Additional Impression: Wound check, abscess Disposition: 01 DC HOME SELF CARE/HOMELESS Condition: STABLE Referrals: PITA BUSTOS MD (PCP) SAMIR GROVE MD follow up in 1-2 weeks Patient Instructions: Uterine Bleeding, Dysfunctional, Wound Check Additional Instructions: You were evaluated in the emergency room. Continue taking Bactrim until completed. Please follow-up with the provided ED [employer] for vaginal spotting and your primary care doctor for the abscess. CHRISTIANO YARBROUGH APRN Oct 19, 2020 16:28
== END 2020-10-19 16:56 | disposition home or self-care (01) ==
LOC: ER 14:53
DX: L02.219 Cutaneous abscess of trunk, unspecified (principal)
CPT/HCPCS: 81025; 99282; 99283

== ENCOUNTER → 2020-11-18 | Outpatient (CLI) | payer OTHER ==
[2020-10-19 15:55] VITALS: BP 118/75
== END ==
LOC: SPEC 10:41
PROVIDERS: ATTEND Obstetrics & Gynecology
DX: N89.8 Other specified noninflammatory disorders of vagina (principal)
CPT/HCPCS: Q0111

== ENCOUNTER 2020-12-23 08:21 | Emergency (ER) | payer OTHER ==
[~2020-12-23] VITALS: Ht 160 cm; Wt 75.9 kg
[2020-12-23 09:05] VITALS: BP 130/64
[2020-12-23 09:25] LABS: BILIRUBIN,URINE NEGATIVE (NEG); CLARITY,URINE CLOUDY; COLOR,URINE YELLOW; NITRITE,URINE NEGATIVE (NEG); PH,URINE 6.5 (<5.0-8.0); PROTEIN,URINE 100 mg/dL (NEG-TRACE)
[2020-12-23 09:33] LABS: WBC,URINE TNTC /HPF (0-4)
[2020-12-23 09:34] LABS: BACTERIA,URINE MODERATE /HPF (0-FEW); RBC,URINE FIELD OBSCURED /HPF (0-2)
--- NOTE | 2020-12-23 09:35 | ED.ADGEN ---
Past Medical History Past Medical History: No Pertinent History Past Surgical History: No Surgical History Smoking Status: Current Every Day Smoker Additional Information: 0.5 PPD Alcohol Use: None General Adult EDM: Chief Complaint: PAIN ON URINATION HPI: HPI: Patient is a 20 year old female coming in for states she only has the pain when she is trying to void. Has been having some vaginal spotting but denies any dysuria. LMP 1.5 months ago, patient states she took a home test that was negative. Denies any vaginal discharge. Review of Systems: Review of Systems: All other systems within normal limits except for as noted in the HPI Allergies: Allergies: Allergies Coded Allergies Type Severity Reaction Last Updated Verified No Known Drug Allergies 11/08/19 No Physical Exam: PE: Constitutional: Well developed, well nourished, no acute distress, non-toxic appearance. [] HENT: Normocephalic, atraumatic, bilateral external ears normal, nose normal. [] Eyes: PERRLA, conjunctiva normal, no discharge. [] Neck: No rigidity, supple, no stridor. [] Cardiovascular: Regular rate and rhythm, brisk cap refill [] Lungs & Thorax: Non labored symmetric respirations, no tachypnea or respiratory distress [] Abdomen: Soft, nondistended. Skin: Warm, dry, no erythema, no rash. [] Back: Unremarkable Extremities: No deformities, range of motion grossly intact, no lower extremity edema [] Neurologic: Alert and oriented X 3, no focal deficits noted. [] Psychologic: Affect normal, judgement normal, mood normal. [] Current Patient Data: Labs: Laboratory Tests Test 12/23/20 08:50 12/23/20 08:55 Urine Collection Type Unknown Urine Color Yellow Urine Clarity Cloudy Urine pH 6.5 (<5.0-8.0) Urine Specific [place] >=1.030 (1.000-1.030) Urine Protein 100 mg/dL (NEG-TRACE) Urine Glucose (UA) Negative mg/dL (NEG) Urine Ketones (Stick) Negative mg/dL (NEG) Urine Blood Large (NEG) Urine Nitrite Negative (NEG) Urine Bilirubin Negative (NEG) Urine Urobilinogen Dipstick 1.0 mg/dL (0.2 mg/dL) Urine Leukocyte Esterase Large (NEG) Urine RBC Field obscured /HPF (0-2) Urine WBC Tntc /HPF (0-4) Urine Squamous Epithelial Cells Occ /LPF Urine Bacteria Moderate /HPF (0-FEW) POC Urine HCG, Qualitative Hcg negative (Negative) Vital Signs: Vital Signs Date Time Temp Pulse Resp B/P (MAP) Pulse Ox O2 Delivery O2 Flow Rate FiO2 12/23/20 09:05 98.3 71 17 130/64 (86) 99 Room Air 98.3 EKG: EKG: [] Heart Score: C/O Chest Pain: No Risk Factors: Risk Factors: DM, Current or recent (<one month) smoker, HTN, HLP, family history of CAD, obesity. Risk Scores: Score 0 - 3: 2.5% MACE over next 6 weeks - Discharge Home Score 4 - 6: 20.3% MACE over next 6 weeks - Admit for Clinical Observation Score 7 - 10: 72.7% MACE over next 6 weeks - Early Invasive Strategies Radiology/Procedures: Radiology/Procedures: [] Course & Med Decision Making: Course & Med Decision Making Pertinent Labs and Imaging studies reviewed. (See chart for details) [] Dragon Disclaimer: Dragon Disclaimer: This electronic medical record was generated, in whole or in part, using a voice recognition dictation system. Departure Departure Impression: Primary Impression: Urinary tract infection Disposition: HOME / SELF CARE / HOMELESS Condition: STABLE Referrals: PITA BUSTOS MD (PCP) Patient Instructions: Urinary Tract Infection Scripts Nitrofurantoin Monohyd/M-Cryst (MACROBID 100 MG CAPSULE) 100 Mg Capsule 1 CAP PO BID for antibiotic for 5 Days, #10 CAP 0 Refills Prov: NEREIDA JENSEN MD 12/23/20 NEREIDA JENSEN MD Dec 23, 2020 09:35
[2020-12-23] MEDS ORDERED: NITR100C62 PO (09:53)
== END 2020-12-23 10:16 | disposition home or self-care (01) ==
LOC: ER 08:21
DX: N39.0 Urinary tract infection, site not specified (principal); F17.200 Nicotine dependence, unspecified, uncomplicated
CPT/HCPCS: 81001; 81025; 87077; 87086; 87186; 99283

== ENCOUNTER → 2021-03-02 | Outpatient (CLI) | payer OTHER ==
[~2021-03-02] MED LIST changes: +NITR100C62 PO
[2021-03-03 00:08] LABS: FSH <0.2 mIU/mL (.); PROLACTIN 29.4 ng/mL (4.8-23.3)
== END ==
LOC: LAB 11:20
PROVIDERS: ATTEND Obstetrics & Gynecology
DX: N89.8 Other specified noninflammatory disorders of vagina (principal); N91.2 Amenorrhea, unspecified
CPT/HCPCS: 36415; 82670; 83001; 84146; 84443; 86592; 86703; 86803; 87340

== ENCOUNTER → 2021-03-07 | Outpatient (CLI) | payer OTHER | LOC: LAB 06:49 | PROVIDERS: ATTEND Obstetrics & Gynecology | DX: N91.2 Amenorrhea, unspecified (principal) | CPT/HCPCS: 36415; 84146 ==

== ENCOUNTER → 2021-05-02 | Outpatient (CLI) | payer OTHER ==
--- NOTE | 2021-05-02 09:51 | RAD ---
Clinical indications: Unsure of gestational age. Findings: A single intrauterine fetus is seen in cephalic position. heart rate is 147 beats per minute. BPD is 3.09 cm which equals 15 weeks 5 days. HC is 11.45 cm which equals 15 weeks 4 days. AC is 8.91 cm which equals 15 weeks 1 day. FL is 1.77 cm which equals 15 weeks 2 days. Average gestational age by ultrasound is 15 weeks 3 days +/- 10 days with an EDC of October 21, 2021. A four-chamber heart and three-vessel cord are identified. stomach and urinary bladder are identified. kidneys are unremarkable. Cord insertion site is unremarkable. The spine is morphologically normal in appearance. The ventricular trigone measurement is less than 10 mm. Cisterna magna measurement is 4 mm. Four extremities are identified. Normal amount of amniotic fluid is evident. Cervical length is 4 cm. A grade 0 posterior placenta is seen. No placenta previa and no placenta abruptio is identified. The maternal ovaries are not visualized. Impression: Single IUP in cephalic presentation with gestational age of 15 weeks 3 days. Electronically signed by: iNgel Moses MD (05/02/2021 9:49 AM) [id number]
== END ==
LOC: US 09:39
PROVIDERS: ATTEND Obstetrics & Gynecology
DX: Z34.92 Encounter for supervision of normal pregnancy, unspecified, second trimester (principal); Z3A.15 15 weeks gestation of pregnancy
CPT/HCPCS: 76805

== ENCOUNTER 2021-05-05 08:50 | Emergency (ER) | payer OTHER ==
[~2021-05-05] VITALS: Ht 162.6 cm; Wt 79.1 kg
[2021-05-05 09:54] LABS: BILIRUBIN,URINE NEGATIVE (NEG); CLARITY,URINE CLOUDY; COLOR,URINE YELLOW; NITRITE,URINE NEGATIVE (NEG); PROTEIN,URINE NEGATIVE (NEG-TRACE)
[2021-05-05 10:16] LABS: BASO % 0 % (0-3); EOS # 0.2 x10^3/uL (0.0-0.7); EOS % 3 % (0-3); HEMATOCRIT 30.8 % (36.0-47.0); HEMOGLOBIN 10.6 g/dL (12.0-15.5); LYMPH # 2.1 x10^3/uL (1.0-4.8); LYMPH % 26 % (24-48); MEAN CORPUSCULAR HEMOGLOBIN 31 pg (25-35); MEAN CORPUSCULAR HGB CONC 34 g/dL (31-37); MEAN CORPUSCULAR VOLUME 89 fL (79-100); MONO # 0.4 x10^3/uL (0.0-1.1); MONO % 5 % (0-9); NEUT # 5.4 x10^3/uL (1.8-7.7); NEUT % 66 % (31-73); PLATELET COUNT 267 x10^3/uL (140-400); RED BLOOD COUNT 3.46 x10^6/uL (3.50-5.40); RED CELL DISTRIBUTION WIDTH 15.1 % (11.5-14.5); WHITE BLOOD COUNT 8.1 x10^3/uL (4.0-11.0)
[2021-05-05 10:22] LABS: AMORPHOUS SEDIMENT,UR PRESENT /HPF; BACTERIA,URINE FEW /HPF (0-FEW); RBC,URINE 0 /HPF (0-2)
[2021-05-05 10:23] LABS: CALCIUM 8.1 mg/dL (8.5-10.1); CREATININE 0.7 mg/dL (0.6-1.0); GFR 126.6; POTASSIUM 3.7 mmol/L (3.5-5.1)
[2021-05-05 10:29] LABS: ALBUMIN 2.9 g/dL (3.4-5.0); ALBUMIN/GLOBULIN RATIO 0.8 (1.0-1.7); TOTAL BILIRUBIN 0.6 mg/dL (0.2-1.0); TOTAL PROTEIN 6.5 g/dL (6.4-8.2)
[2021-05-05] MEDS ORDERED: CEFD300C PO ×2 (11:23→12:24)
--- NOTE | 2021-05-05 11:32 | PHYS DOC ---
Past Medical History Past Medical History: No Pertinent History Past Surgical History: No Surgical History Smoking Status: Current Every Day Smoker Alcohol Use: None General Adult EDM: Chief Complaint: MULTIPLE COMPLAINTS HPI: HPI: Patient is a 21 year old female who is approximately 15 weeks gestational age presents with 2 days of left lower quadrant discomfort. Is achy in nature. Worse with movement. Denies nausea/vomiting. No fever/chills. No vaginal bleeding, or uterine cramping. No watery discharge, but has had yellow/brownish discharge for approximately a month. Also complains of a mild right-sided headache, that centers around her right ear. She does use Q-tips often and moving the earlobe or the ear does cause her some mild discomfort. She has not taken any medications for pain. Her OB is Dr. Goldman. She has had an ultrasound, and this has been an uncomplicated . Review of Systems: Review of Systems: Constitutional: Denies fever or chills. [] Eyes: Denies change in visual acuity. [] HENT: Denies nasal congestion or sore throat. [] Respiratory: Denies cough or shortness of breath. [] Cardiovascular: Denies chest pain or edema. [] GI: Reports left lower quadrant discomfort. Denies nausea, vomiting, bloody stools or diarrhea. [] : Denies dysuria,, urgency, frequency. Reports brownish/yellow vaginal discharge. [] Musculoskeletal: Denies back pain or joint pain. [] Integument: Denies rash. [] Neurologic: Denies headache, focal weakness or sensory changes. [] Endocrine: Denies polyuria or polydipsia. [] Lymphatic: Denies swollen glands. [] Psychiatric: Denies depression or anxiety. [] Heart Score: C/O Chest Pain: N/A Allergies: Allergies: Allergies Coded Allergies Type Severity Reaction Last Updated Verified No Known Drug Allergies 11/08/19 No Physical Exam: PE: Constitutional: Well developed, well nourished, no acute distress, non-toxic appearance. [] HENT: Normocephalic, atraumatic, bilateral external ears normal, oropharynx moist, no oral exudates, nose normal. [] Eyes: PERRLA, EOMI, conjunctiva normal, no discharge. [] Neck: Normal range of motion, no tenderness, supple, no stridor. [] Cardiovascular:Heart rate regular rhythm, no murmur [] Lungs & Thorax: Bilateral breath sounds clear to auscultation [] Abdomen: Gravid uterus. Mild tenderness to palpation over the uterus, below the level of the bellybutton. No upper quadrant tenderness. : skin: Warm, dry, no erythema, no rash. [] Back: No tenderness, no CVA tenderness. [] Extremities: No tenderness, no cyanosis, no clubbing, ROM intact, no edema. [] Neurologic: Alert and oriented X 3, normal motor function, normal sensory function, no focal deficits noted. [] Psychologic: Affect normal, judgement normal, mood normal. [] Current Patient Data: Labs: Laboratory Tests Test 05/05/21 09:10 05/05/21 09:23 05/05/21 09:43 Urine Collection Type Unknown Urine Color Yellow Urine Clarity Cloudy Urine pH 8.0 (<5.0-8.0) Urine Specific [place] 1.020 (1.000-1.030) Urine Protein Negative mg/dL (NEG-TRACE) Urine Glucose (UA) Negative mg/dL (NEG) Urine Ketones (Stick) Negative mg/dL (NEG) Urine Blood Negative (NEG) Urine Nitrite Negative (NEG) Urine Bilirubin Negative (NEG) Urine Urobilinogen Dipstick 1.0 mg/dL (0.2 mg/dL) Urine Leukocyte Esterase Moderate (NEG) Urine RBC 0 /HPF (0-2) Urine WBC 1-4 /HPF (0-4) Urine Squamous Epithelial Cells Mod /LPF Urine Amorphous Sediment Present /HPF Urine Bacteria Few /HPF (0-FEW) Urine Mucus Slight /LPF POC Urine HCG, Qualitative Hcg positive (Negative) White Blood Count 8.1 x10^3/uL (4.0-11.0) Red Blood Count 3.46 x10^6/uL (3.50-5.40) L Hemoglobin 10.6 g/dL (12.0-15.5) L Hematocrit 30.8 % (36.0-47.0) L Mean Corpuscular Volume 89 fL (79-100) Mean Corpuscular Hemoglobin 31 pg (25-35) Mean Corpuscular Hemoglobin Concent 34 g/dL (31-37) Red Cell Distribution Width 15.1 % (11.5-14.5) H Platelet Count 267 x10^3/uL (140-400) Neutrophils (%) (Auto) 66 % (31-73) Lymphocytes (%) (Auto) 26 % (24-48) Monocytes (%) (Auto) 5 % (0-9) Eosinophils (%) (Auto) 3 % (0-3) Basophils (%) (Auto) 0 % (0-3) Neutrophils # (Auto) 5.4 x10^3/uL (1.8-7.7) Lymphocytes # (Auto) 2.1 x10^3/uL (1.0-4.8) Monocytes # (Auto) 0.4 x10^3/uL (0.0-1.1) Eosinophils # (Auto) 0.2 x10^3/uL (0.0-0.7) Basophils # (Auto) 0.0 x10^3/uL (0.0-0.2) Sodium Level 140 mmol/L (136-145) Potassium Level 3.7 mmol/L (3.5-5.1) Chloride Level 105 mmol/L (98-107) Carbon Dioxide Level 24 mmol/L (21-32) Anion Gap 11 (6-14) Blood Urea Nitrogen 6 mg/dL (7-20) L Creatinine 0.7 mg/dL (0.6-1.0) Estimated GFR (Cockcroft-Gault) 126.6 BUN/Creatinine Ratio 9 (6-20) Glucose Level 76 mg/dL (70-99) Calcium Level 8.1 mg/dL (8.5-10.1) L Total Bilirubin 0.6 mg/dL (0.2-1.0) Aspartate Amino Transferase (AST) 10 U/L (15-37) L Alanine Aminotransferase (ALT) 15 U/L (14-59) Alkaline Phosphatase 57 U/L (46-116) Total Protein 6.5 g/dL (6.4-8.2) Albumin 2.9 g/dL (3.4-5.0) L Albumin/Globulin Ratio 0.8 (1.0-1.7) L Laboratory Tests 05/05/21 09:43 Laboratory Tests 05/05/21 09:43 Vital Signs: Vital Signs Date Time Temp Pulse Resp B/P (MAP) Pulse Ox O2 Delivery O2 Flow Rate FiO2 10/22/21 09:10 98.3 71 16 134/78 (96 100 Room Air 98.3 EKG: EKG: [] Radiology/Procedures: Radiology/Procedures: [] Impression: [facility] [id number] [place] [address] IMAGING REPORT Signed PATIENT: SULAIMAN PARHAM ACCOUNT: [id number] : 2000 LOCATION: ER AGE: 21 SEX: F EXAM STATUS: REG ER ORD. PHYSICIAN: CARMELINA BULLARD MD REASON: LLQ abd pain PROCEDURE: OB LIMITED US OB LIMITED History: Reason: LLQ abd pain / Spl. Instructions: / History: Comparison: May 02, 2021. Technique: Multiple grayscale images, color Doppler, and M-mode images of the uterus are obtained. Findings: There is a single intrauterine gestation in breech presentation. The placenta is posterior in location without evidence of placenta previa. The amount of amniotic fluid appears appropriate. Amniotic fluid index is 8 cm. Cervical length is 2.58 cm. No evidence of perigestational fluid collection. Biometrical data: BPD = 3.3 cm for 16 weeks 2 days. HC = 12.17 cm for 16 weeks 1 days. AC = 11.12 cm for 17 weeks 0 days. FL = 2.06 cm for 16 weeks 1 days. HC/AC ratio = 1.09. Overall, the estimated sonographic gestational age is 16 weeks 3 days for an estimated date of delivery of October 17, 2021. Estimated weight is 159 grams. heart rate 162 bpm. movement is identified. Left maternal ovary measures 3.6 cm. Normal Doppler flow to the left ovary. Impression: 1. Single intrauterine gestation with estimated gestational age 16 weeks 3 days and heart 162 bpm. Recommend routine anatomic screening at 18-22 weeks. Electronically signed by: Fransisco Goldman DO (05/05/2021 11:50 AM) [id number] DICTATED and SIGNED BY: FRANSISCO GOLDMAN DO DATE: 05/05/21 [id number] Course & Med Decision Making: Course & Med Decision Making Pertinent Labs and Imaging studies reviewed. (See chart for details) Patient is a 21-year-old female who is approximately 15 weeks gestational age who presents with 2 days of left lower quadrant discomfort that is exacerbated by movement. She is afebrile and vitally stable on arrival. Well-appearing on examination. Has some mild uterine discomfort with palpation, but benign upper and right lower quadrant abdominal exam. The only other accompanying symptom is brownish/yellow discharge. CBC and CMP noncontributory. UA does show bacteriuria and a small amount of WBCs, given her status will treat with cefdinir. Ultrasound, wet prep, GC/chlamydia also ordered. [id number] Dragon Disclaimer: Dragon Disclaimer: This electronic medical record was generated, in whole or in part, using a voice recognition dictation system. Departure Departure Impression: Primary Impression: Bacterial vaginosis Additional Impression: Asymptomatic bacteriuria Disposition: HOME / SELF CARE / HOMELESS Condition: STABLE Referrals: PITA BUSTOS MD (PCP) WOOD GOLDMAN MD Schedule a follow up appointment. Additional Instructions: Your ultrasound was reassuring. Your lab work showed evidence of bacteria in your urine as well as a bacterial infection in your vagina called bacterial vaginosis. These require 2 different antibiotics. Please take both prescriptions, and finish them as prescribed. Do not drink alcohol while on metronidazole, because it will cause serious i llness. Please schedule follow-up appointment with Dr. Goldman. Scripts Metronidazole (METRONIDAZOLE) 500 Mg Tablet 1 TAB PO BID for 7 Days, #14 TAB 0 Refills Prov: CARMELINA BULLARD MD 05/05/21 Cefdinir (CEFDINIR) 300 Mg Capsule 1 CAP PO BID for 5 Days, #10 CAP 0 Refills Prov: CARMELINA BULLARD MD 05/05/21 Cefdinir (CEFDINIR) 300 Mg Capsule 1 CAP PO BID for 5 Days, #10 CAP 0 Refills Prov: CARMELINA BULLARD MD 05/05/21 CARMELINA BULLARD MD May 05, 2021 11:32
--- NOTE | 2021-05-05 11:53 | RAD ---
US OB LIMITED History: Reason: LLQ abd pain / Spl. Instructions: / History: Comparison: May 02, 2021. Technique: Multiple grayscale images, color Doppler, and M-mode images of the uterus are obtained. Findings: There is a single intrauterine gestation in breech presentation. The placenta is posterior in locatio n without evidence of placenta previa. The amount of amniotic fluid appears appropriate. Amniotic fl uid index is 8 cm. Cervical length is 2.58 cm. No evidence of perigestational fluid collection. Biometrical data: BPD = 3.3 cm for 16 weeks 2 days. HC = 12.17 cm for 16 weeks 1 days. AC = 11.12 cm for 17 weeks 0 days. FL = 2.06 cm for 16 weeks 1 days. HC/AC ratio = 1.09. Overall, the estimated sonographic gestational age is 16 weeks 3 days for an estimated date of delive ry of October 17, 2021. Estimated weight is 159 grams. heart rate 162 bpm. movement is identified. Left maternal ovary measures 3.6 cm. Normal Doppler flow to the left ovary. Impression: 1. Single intrauterine gestation with estimated gestational age 16 weeks 3 days and heart 162 bpm. Recommend routine anatomic screening at 18-22 weeks. Electronically signed by: Fransisco Villa DO (05/05/2021 11:50 AM) [id number]
[2021-05-05] MEDS ORDERED: METR-34 PO (12:24)
[2021-05-05 12:32] VITALS: BP 111/69
[2021-05-08 18:13] LABS: GC PROBE Negative (Negative)
== END 2021-05-05 12:35 | disposition home or self-care (01) ==
LOC: ER 08:50
DX: O23.592 Infection of other part of genital tract in pregnancy, second trimester (principal); B96.89 Other specified bacterial agents as the cause of diseases classified elsewhere; R82.71 Bacteriuria; Z3A.15 15 weeks gestation of pregnancy; O99.332 Smoking (tobacco) complicating pregnancy, second trimester
CPT/HCPCS: 76815; 80053; 81001; 81025; 85025; 87086; 87491; 87591; 99285; Q0111

== ENCOUNTER 2021-05-09 03:29 | Emergency (ER) | payer OTHER ==
[~2021-05-09] VITALS: Ht 162.6 cm; Wt 79.0 kg
[~2021-05-09 03:29] MED LIST changes: +CEFD300C PO; +METR-34 PO
[2021-05-09 04:42] LABS: BASO % 0 % (0-3); EOS # 0.3 x10^3/uL (0.0-0.7); EOS % 2 % (0-3); HEMATOCRIT 31.2 % (36.0-47.0); HEMOGLOBIN 10.5 g/dL (12.0-15.5); LYMPH # 2.7 x10^3/uL (1.0-4.8); LYMPH % 19 % (24-48); MEAN CORPUSCULAR HEMOGLOBIN 30 pg (25-35); MEAN CORPUSCULAR HGB CONC 34 g/dL (31-37); MEAN CORPUSCULAR VOLUME 88 fL (79-100); MONO # 0.7 x10^3/uL (0.0-1.1); MONO % 5 % (0-9); NEUT # 10.8 x10^3/uL (1.8-7.7); NEUT % 74 % (31-73); PLATELET COUNT 338 x10^3/uL (140-400); RED BLOOD COUNT 3.55 x10^6/uL (3.50-5.40); RED CELL DISTRIBUTION WIDTH 14.9 % (11.5-14.5); WHITE BLOOD COUNT 14.5 x10^3/uL (4.0-11.0)
--- NOTE | 2021-05-09 04:43 | RAD ---
EXAM: US OB Limited CLINICAL HISTORY: Reason: blunt abd trauma / Spl. Instructions: / History: . COMPARISON: None available. TECHNIQUE: Limited transabdominal ultrasound of the uterus was performed. FINDINGS: Single living intrauterine identified with heart rate of 162 bpm. Placenta is posteri or wall. Placental grade 0. The biparietal diameter measures 3.1 cm corresponding to 15 weeks and 6 days Head circumference measures 12.7 cm corresponding to 16 weeks and 3 days Abdominal circumference measures 11.3 cm corresponding to 17 weeks and 1 day. Femur length measures 2.2 cm corresponding to 16 weeks and 5 days. LMP is 01/13/2021. Clinical age 16 weeks and 4 days with expected date of delivery by LMP 10/20/2021. Gestational age by AUA 16 weeks and 4 days with expected date of delivery by ultrasound 10/20/2021. Amn iotic fluid is normal. IMPRESSION: Single living intrauterine as described above. Electronically signed by: José Luis Abarca MD (05/09/2021 4:41 AM) [id number]
[2021-05-09 04:45] LABS: BILIRUBIN,URINE NEGATIVE (NEG); CLARITY,URINE CLEAR; COLOR,URINE YELLOW; NITRITE,URINE NEGATIVE (NEG); PROTEIN,URINE NEGATIVE (NEG-TRACE)
[2021-05-09 04:49] LABS: BARBITURATES NEG (NEG); BENZODIAZEPINES NEG (NEG); CANNABINOIDS NEG (NEG); COCAINE NEG (NEG); METHADONE NEG (NEG); OPIATES NEG (NEG); PHENCYCLIDINE NEG (NEG)
[2021-05-09 04:50] LABS: AMPHETAMINE/METHAMPHETAMINE NEG (NEG)
[2021-05-09 04:52] LABS: CALCIUM 8.4 mg/dL (8.5-10.1); CREATININE 0.7 mg/dL (0.6-1.0); GFR 126.6; POTASSIUM 3.6 mmol/L (3.5-5.1)
[2021-05-09 04:55] LABS: BACTERIA,URINE 0 /HPF (0-FEW)
[2021-05-09 04:59] LABS: ALBUMIN 3.2 g/dL (3.4-5.0); ALBUMIN/GLOBULIN RATIO 0.9 (1.0-1.7); TOTAL BILIRUBIN 0.4 mg/dL (0.2-1.0); TOTAL PROTEIN 6.9 g/dL (6.4-8.2)
--- NOTE | 2021-05-09 06:10 | PHYS DOC ---
Past Medical History Past Medical History: No Pertinent History Past Surgical History: No Surgical History Smoking Status: Never Smoker Alcohol Use: None General Adult EDM: Chief Complaint: MECHANICAL FALL HPI: HPI: 21-year-old -0-0-1 female at approximately 16 weeks , presents the ED with complaints of rolling her left ankle and landing on her right side around 2:00 this morning, denies any LOC or head injury. States around 3pm the day prior she had multiple episodes of nausea nonbloody nonbilious vomiting after eating [place] food. States she was feeling really weak and dehydrated when she fell. C/o anterior left ankle pain (no prior h/o injury), right upper abdominal pain and right sided rib pain. Review of Systems: Review of Systems: Constitutional: Denies fever or chills. [] Eyes: Denies change in visual acuity. [] HENT: Denies nasal congestion or sore throat. [] Respiratory: Denies cough or shortness of breath. [] Cardiovascular: Denies chest pain or edema. [] GI: Denies melena, hematochezia or constipation : Denies dysuria, hematuria, abnormal vaginal discharge, vaginal bleeding or vaginal fluid leakage Musculoskeletal: Denies back pain or joint pain. [] Integument: Denies rash or diaphoresis Neurologic: Denies headache, focal weakness or sensory changes. [] Endocrine: Denies polyuria or polydipsia. [] Lymphatic: Denies swollen glands. [] Psychiatric: Denies depression or anxiety. [] Heart Score: C/O Chest Pain: No Risk Factors: Risk Factors: DM, Current or recent (<one month) smoker, HTN, HLP, family history of CAD, obesity. Risk Scores: Score 0 - 3: 2.5% MACE over next 6 weeks - Discharge Home Score 4 - 6: 20.3% MACE over next 6 weeks - Admit for Clinical Observation Score 7 - 10: 72.7% MACE over next 6 weeks - Early Invasive Strategies Allergies: Allergies: Allergies Coded Allergies Type Severity Reaction Last Updated Verified No Known Drug Allergies 11/08/19 No Physical Exam: PE: Constitutional: Well developed, well nourished, no acute distress, non-toxic appearance. HENT: Normocephalic, atraumatic, Eyes: PERRLA, EOMI, conjunctiva normal, no discharge, no midline neck pain Neck: Normal range of motion, supple, Cardiovascular: S1/2 present, regular rhythm Lungs & Thorax: Speaking in full sentences, bilateral equal chest rise, no tachypnea or increased work of breathing Abdomen: soft, reports mild ruq ttp with no Maldonado sign, no left lower quadrant right lower quadrant abdominal pain, reports rib pain is in right mid axillary line over ribs 5 through 7-no subcutaneous emphysema Skin: Warm, dry, no erythema, no rash, reports she landed on her right side-no blunt anterior abdominal trauma, no external bruising or swelling of skin Back: No midline spinal step-offs or tenderness, no CVA tenderness. [] Extremities: No tenderness, no cyanosis, no lower extremity edema Neurologic: Alert and oriented X 3, normal motor function, normal sensory function, no focal deficits noted. [] Psychologic: Affect normal, judgement normal, mood normal. [] Pelvic: Chaperoned by female staff, external genitalia normal, no vaginal bleeding, normal nonmalodorous white discharge, cervical os closed, no cervical erythema, tolerated exam well Current Patient Data: Labs: Laboratory Tests Test 05/09/21 04:23 05/09/21 04:35 Urine Collection Type Unknown Urine Color Yellow Urine Clarity Clear Urine pH 6.0 (<5.0-8.0) Urine Specific [place] >=1.030 (1.000-1.030) Urine Protein Negative mg/dL (NEG-TRACE) Urine Glucose (UA) Negative mg/dL (NEG) Urine Ketones (Stick) Trace mg/dL (NEG) Urine Blood Large (NEG) Urine Nitrite Negative (NEG) Urine Bilirubin Negative (NEG) Urine Urobilinogen Dipstick 1.0 mg/dL (0.2 mg/dL) Urine Leukocyte Esterase Trace (NEG) Urine RBC 11-20 /HPF (0-2) Urine WBC 5-10 /HPF (0-4) Urine Squamous Epithelial Cells Mod /LPF Urine Bacteria 0 /HPF (0-FEW) Urine Mucus Mod /LPF Urine Opiates Screen Neg (NEG) Urine Methadone Screen Neg (NEG) Urine Barbiturates Neg (NEG) Urine Phencyclidine Screen Neg (NEG) Urine Amphetamine/Methamphetamine Neg (NEG) Urine Benzodiazepines Screen Neg (NEG) Urine Cocaine Screen Neg (NEG) Urine Cannabinoids Screen Neg (NEG) Urine Ethyl Alcohol Neg (NEG) White Blood Count 14.5 x10^3/uL (4.0-11.0) H Red Blood Count 3.55 x10^6/uL (3.50-5.40) Hemoglobin 10.5 g/dL (12.0-15.5) L Hematocrit 31.2 % (36.0-47.0) L Mean Corpuscular Volume 88 fL (79-100) Mean Corpuscular Hemoglobin 30 pg (25-35) Mean Corpuscular Hemoglobin Concent 34 g/dL (31-37) Red Cell Distribution Width 14.9 % (11.5-14.5) H Platelet Count 338 x10^3/uL (140-400) Neutrophils (%) (Auto) 74 % (31-73) H Lymphocytes (%) (Auto) 19 % (24-48) L Monocytes (%) (Auto) 5 % (0-9) Eosinophils (%) (Auto) 2 % (0-3) Basophils (%) (Auto) 0 % (0-3) Neutrophils # (Auto) 10.8 x10^3/uL (1.8-7.7) H Lymphocytes # (Auto) 2.7 x10^3/uL (1.0-4.8) Monocytes # (Auto) 0.7 x10^3/uL (0.0-1.1) Eosinophils # (Auto) 0.3 x10^3/uL (0.0-0.7) Basophils # (Auto) 0.0 x10^3/uL (0.0-0.2) Maternal Serum HCG Beta Subunit 62166 mIU/mL (0-5) H Sodium Level 137 mmol/L (136-145) Potassium Level 3.6 mmol/L (3.5-5.1) Chloride Level 104 mmol/L (98-107) Carbon Dioxide Level 25 mmol/L (21-32) Anion Gap 8 (6-14) Blood Urea Nitrogen 12 mg/dL (7-20) Creatinine 0.7 mg/dL (0.6-1.0) Estimated GFR (Cockcroft-Gault) 126.6 BUN/Creatinine Ratio 17 (6-20) Glucose Level 89 mg/dL (70-99) Calcium Level 8.4 mg/dL (8.5-10.1) L Total Bilirubin 0.4 mg/dL (0.2-1.0) Aspartate Amino Transferase (AST) 11 U/L (15-37) L Alanine Aminotransferase (ALT) 18 U/L (14-59) Alkaline Phosphatase 64 U/L (46-116) Total Protein 6.9 g/dL (6.4-8.2) Albumin 3.2 g/dL (3.4-5.0) L Albumin/Globulin Ratio 0.9 (1.0-1.7) L Laboratory Tests 05/09/21 04:35 Laboratory Tests 05/09/21 04:35 Vital Signs: Vital Signs Date Time Temp Pulse Resp B/P (MAP) Pulse Ox O2 Delivery O2 Flow Rate FiO2 05/09/21 04:15 98.7 72 16 114/64 (81) 100 Room Air 98.7 EKG: EKG: [] Radiology/Procedures: Radiology/Procedures: IMAGING REPORT Signed PATIENT: SULAIMAN PARHAM ACCOUNT: [id number] : 2000 LOCATION: ER AGE: 21 SEX: F EXAM STATUS: PRE ER ORD. PHYSICIAN: ABDULKADIR JIMENEZ DO REASON: blunt abd trauma PROCEDURE: OB LIMITED EXAM: US OB Limited CLINICAL HISTORY: Reason: blunt abd trauma / Spl. Instructions: / History: . COMPARISON: None available. TECHNIQUE: Limited transabdominal ultrasound of the uterus was performed. FINDINGS: Single living intrauterine identified with heart rate of 162 bpm. Placenta is posterior wall. Placental grade 0. The biparietal diameter measures 3.1 cm corresponding to 15 weeks and 6 days Head circumference measures 12.7 cm corresponding to 16 weeks and 3 days Abdominal circumference measures 11.3 cm corresponding to 17 weeks and 1 day. Femur length measures 2.2 cm corresponding to 16 weeks and 5 days. LMP is 01/13/2021. Clinical age 16 weeks and 4 days with expected date of delivery by LMP 10/20/2021. Gestational age by AUA 16 weeks and 4 days with expected date of delivery by ultrasound 10/20/2021. Amniotic fluid is normal. IMPRESSION: Single living intrauterine as described above. Electronically signed by: José Luis Abarca MD (05/09/2021 4:41 AM) [id number] DICTATED and SIGNED BY: JOSÉ LUIS ABARCA MD DATE: 05/09/21 [id number] 0 IMAGING REPORT Signed PATIENT: SULAIMAN PARHAM ACCOUNT: [id number] : 2000 LOCATION: ER AGE: 21 SEX: F EXAM STATUS: DEP ER ORD. PHYSICIAN: ABDULKADIR JIMENEZ DO REASON: left ankle pain PROCEDURE: ANKLE LEFT 3V Three-view left ankle HISTORY: Left ankle pain AP lateral oblique views The tibiotalar relationship is normal. There is soft tissue swelling over the medial malleolus. The visualized osseous structures appear normal. IMPRESSION: Soft tissue swelling could be secondary to ligamentous injury. No evidence of fracture or dislocation. Electronically signed by: Ariadna Mcclain III, MD (05/09/2021 7:40 AM) [facility] DICTATED and SIGNED BY: ARIADNA MCCLAIN III, MD DATE: 05/09/21 [id number] 0 Course & Med Decision Making: Course & Med Decision Making Pertinent Labs and Imaging studies reviewed. (See chart for details) Concern for left ankle sprain (s/p ankle boot and crutches given) and pain of her right mid axillary rib region and hemodynamically stable patient with no severe abdominal pain or vaginal bleeding. Patient reports her ankle pain is far worse than her right rib pain. Patient states pain is tolerable and request to be discharged home. I discussed patient's presentation with Dr. Villa who recommends dc home (no need for observation x 6 hours) with strict ED return precautions for abdominal pain, back pain, vaginal bleeding or syncope. Encouraged urgent outpatient follow-up with PMD and [employer]ODUCTS TE[facility]. Life-threatening processes were considered but are low suspicion at this time, given history, physical exam and ED workup. Pt was educated on all prescription medications and adverse effects. All patient's questions were answered and pt was stable at time of discharge. Life/limb-threatening differential includes but is not limited to, trauma (fracture, dislocation, laceration, compartment syndrome, tendon or ligament injury), neurovascular injury or deficitcva/tia, infection (osteomyelitis, abscess, cellulitis, septic arthritis, necrotizing fasciitis), deep vein thrombosis, renal/cardiac/liver disease, medication adverse effect, lymphedema/anasarca, vascular insufficiency or malignancy, Life/limb-threatening differential includes but is not limited to, , ectopic , malposition/incarcerated uterus, labor, placental abruption or uterine rupture, vaginal trauma, surgical abdomen, placenta previa/accreta/increta/percreta, preeclampsia/aphasia, HELLP syndrome, ovarian cystm torsion, chorioamnionitis or cholestasis of . I have spoken with the patient and/or caregivers. I explained the patient's condition, diagnoses and treatment plan based on the information available to me at this time. I have answered the patient and/or caregiver's questions and add ressed any concerns. The patient and/or caregivers have a good understanding of patient's diagnosis, condition and treatment plan as can be expected at this point. Vital signs have been stable. Patient's condition is stable and appropriate for discharge from the emergency department. Patient will pursue further outpatient evaluation with primary care physician or other designated or consulting physician as outlined in the discharge instructions. The patient and/or caregivers are agreeable to this plan of care and follow-up instructions have been explained in detail. The patient and/or c aregivers have received these instructions in written form and have expressed an understanding of the discharge instructions. The patient and/or caregivers are aware that any significant change of condition or worsening of symptoms should prompt immediate return to this or the closest emergency department or call to 911. Jory Disclaimer: Jory Disclaimer: This electronic medical record was generated, in whole or in part, using a voice recognition dictation system. Departure Departure Impression: Primary Impression: Right upper quadrant abdominal pain Additional Impression: Left ankle sprain Disposition: HOME / SELF CARE / HOMELESS Condition: STABLE Referrals: PITA BUSTOS MD (PCP) Follow-up with your primary care physician in 24 to 48 hours OR FOLLOW UP WITH FAMILY MEDICINE: [address] [place] [address] Patient Instructions: Abdominal Pain During , Ankle Sprain, Crutch Use Additional Instructions: FOLLOW UP WITH [employer]: FOR DEFINITIVE MANAGEMENT of abdominal pain, d/w Dr. Villa-return to ed immediately if you should develop any worsening abdominal pain, back pain or vaginal bleeding [facility] [address] [place] [address] FOLLOW UP WITH ORTHOPEDICS: FOR DEFINITIVE MANAGEMENT of left ankle sprain Orthopaedic Surgery [address] [place] [address] EMERGENCY DEPARTMENT GENERAL DISCHARGE INSTRUCTIONS Thank you for coming to [facility] Emergency Department (ED) today and trusting us with you care. We trust that you had a positive experience in our Emergency Department. If you wish to speak to the department management, you may call the Director at [phone]. YOUR FOLLOW UP INSTRUCTIONS ARE FOLLOWS: 1. Do you have a private Doctor? If you do not have a private doctor, please ask for a resource list of physicians or clinics that may be able to assist you with follow up care. 2. The Emergency Physicain has interpreted your x-rays. The X-Ray specialist will also review them. If there is a change in the findings, you will be notified in 48 hours when at all possible. 3. A lab test or culture has been done, your results will be reviewed and you will be notified if you need a change in treatment. ADDITIONAL INSTRUCTIONS AND INFORMATION: 1. Your care today has been supervised by a physician who is specially trained in emergency care. Many problems require more than one evaluation for a complete diagnosis and treatment. We recommend that you schedule your follow up appointment as recomm ended to ensure complete treatment of you illness or injury. If you are unable to obtain follow up care and continue to have a problem, or if your condition worsens, we recommend that you return to the ED. 2. We are not able to safely determine your condition over the phone nor are we able to give sound medical advice over the phone. For these safety reasons, if you call for medical advice we will ask you to come to the ED for further evaluation. 3. If you have any questions regarding these discharge instructions please call the ED at [phone]. SAFETY INFORMATION: In the interest of safety, wellness, and injury prevention; we encourage you to wear your sealbelt, if you smoke; quite smoking, and we encourage family to use a protective helmet for bicycling and other sporting events that present an increased risk for head injury. IF YOUR SYMPTOMS WORSEN OR NEW SYMPTOMS DEVELOP, OR YOU HAVE CONCERNS ABOUT YOUR CONDITION; OR IF YOUR CONDITION WORSENS WHILE YOU ARE WAITING FOR YOUR FOLLOW UP APPOINTMENT; EITHER CONTACT YOUR PRIMARY CARE DOCTOR, THE PHYSICIAN WHOSE NAME AND NUMBER YOU WERE GIVEN, OR RETURN TO THE ED IMMEDIATELY. ABDULKADIR GEE DO May 09, 2021 06:10
[2021-05-09 07:09] VITALS: BP 123/72
--- NOTE | 2021-05-09 07:43 | RAD ---
Three-view left ankle HISTORY: Left ankle pain AP lateral oblique views The tibiotalar relationship is normal. There is soft tissue swelling over the medial malleolus. The v isualized osseous structures appear normal. IMPRESSION: Soft tissue swelling could be secondary to ligamentous injury. No evidence of fracture or dislocation . Electronically signed by: Curtis Morley III, MD (05/09/2021 7:40 AM) [facility]
== END 2021-05-09 07:09 | disposition home or self-care (01) ==
LOC: ER 03:29
DX: O9A.212 Injury, poisoning and certain other consequences of external causes complicating pregnancy, second trimester (principal); S93.402A Sprain of unspecified ligament of left ankle, initial encounter; R10.11 Right upper quadrant pain; R11.2 Nausea with vomiting, unspecified; Z3A.16 16 weeks gestation of pregnancy; W18.39XA Other fall on same level, initial encounter; Y93.89 Activity, other specified; Y92.89 Other specified places as the place of occurrence of the external cause; Y99.8 Other external cause status
CPT/HCPCS: 29515; 36415; 73610; 76815; 80053; 80307; 81001; 84702; 85025; 87086; 99285-25

== ENCOUNTER → 2021-05-23 | Outpatient (CLI) | payer OTHER ==
[2021-05-09 07:09] VITALS: BP 123/72
[2021-05-23 20:31] LABS: HEMATOCRIT 32.8 % (36.0-47.0); HEMOGLOBIN 10.6 g/dL (12.0-15.5); RED BLOOD COUNT 3.63 x10^6/uL (3.50-5.40); RED CELL DISTRIBUTION WIDTH 14.9 % (11.5-14.5); WHITE BLOOD COUNT 10.1 x10^3/uL (4.0-11.0)
[2021-05-24 20:13] LABS: RUBELLA IGG ANTIBODY 1.22 index (Immune >0.99)
== END ==
LOC: LAB 10:34
PROVIDERS: ATTEND Obstetrics & Gynecology
DX: Z34.92 Encounter for supervision of normal pregnancy, unspecified, second trimester (principal)
CPT/HCPCS: 36415; 85027; 86592; 86703; 86762; 86787; 86803; 86850; 86900; 86901; 87340

== ENCOUNTER 2021-06-26 10:41 | Observation (INO) | payer OTHER ==
[2021-06-26] MEDS ORDERED: IV RINGERS,LACTATED 1000ML 1,000 ML IV PRN (11:15)
[2021-06-26 11:50] LABS: BILIRUBIN,URINE NEGATIVE (NEG); CLARITY,URINE CLOUDY; COLOR,URINE YELLOW; NITRITE,URINE NEGATIVE (NEG); PH,URINE 8.5 (<5.0-8.0); PROTEIN,URINE NEGATIVE (NEG-TRACE)
[2021-06-26 12:14] LABS: BACTERIA,URINE FEW /HPF (0-FEW); RBC,URINE 0 /HPF (0-2); WBC,URINE 20-40 /HPF (0-4)
[2021-06-26 12:15] LABS: AMORPHOUS SEDIMENT,UR PRESENT /HPF
== END 2021-06-26 12:22 | disposition home or self-care (01) ==
LOC: 3 SO LND 10:41
PROVIDERS: ADMIT Obstetrics & Gynecology; ATTEND Obstetrics & Gynecology
DX: O46.92 Antepartum hemorrhage, unspecified, second trimester (principal); Z3A.23 23 weeks gestation of pregnancy; Z79.899 Other long term (current) drug therapy
CPT/HCPCS: 59025; 81001; 87086; G0378; G0379

== ENCOUNTER → 2021-07-03 | Outpatient (CLI) | payer OTHER ==
[2021-07-03 13:58] LABS: BASO % 0 % (0-3); EOS # 0.2 x10^3/uL (0.0-0.7); EOS % 2 % (0-3); HEMATOCRIT 28.5 % (36.0-47.0); HEMOGLOBIN 9.2 g/dL (12.0-15.5); LYMPH # 2.5 x10^3/uL (1.0-4.8); LYMPH % 22 % (24-48); MEAN CORPUSCULAR HEMOGLOBIN 29 pg (25-35); MEAN CORPUSCULAR HGB CONC 32 g/dL (31-37); MEAN CORPUSCULAR VOLUME 90 fL (79-100); MONO # 0.6 x10^3/uL (0.0-1.1); MONO % 5 % (0-9); NEUT # 7.9 x10^3/uL (1.8-7.7); NEUT % 70 % (31-73); PLATELET COUNT 293 x10^3/uL (140-400); RED BLOOD COUNT 3.18 x10^6/uL (3.50-5.40); RED CELL DISTRIBUTION WIDTH 13.9 % (11.5-14.5); WHITE BLOOD COUNT 11.2 x10^3/uL (4.0-11.0)
== END ==
LOC: LAB 13:33
PROVIDERS: ATTEND Obstetrics & Gynecology
DX: Z34.92 Encounter for supervision of normal pregnancy, unspecified, second trimester (principal)
CPT/HCPCS: 36415; 82950; 85025

== ENCOUNTER 2021-09-01 23:13 | Observation (INO) | payer OTHER ==
[~2021-09-01] VITALS: Ht 160 cm; Wt 193.0 kg
[2021-09-01] MEDS ORDERED: MAG HYDROX/ALUMINUM HYD/SIMETH 30 ML ORAL.SUSP PO PRN (23:30)
[2021-09-01] MEDS ORDERED: ACETAMINOPHEN 325 MG TABLET. PO PRN (23:30)
[2021-09-01] MEDS ORDERED: IV RINGERS,LACTATED 1000ML 1,000 ML IV SCH (23:30)
[2021-09-01 23:43] LABS: BILIRUBIN,URINE NEGATIVE (NEG); CLARITY,URINE CLOUDY; COLOR,URINE YELLOW; NITRITE,URINE NEGATIVE (NEG); PROTEIN,URINE 100 mg/dL (NEG-TRACE); UROBILINOGEN,URINE 0.2 mg/dL (0.2 mg/dL)
[2021-09-01 23:51] LABS: BACTERIA,URINE MODERATE /HPF (0-FEW); RBC,URINE RARE /HPF (0-2); WBC,URINE 20-40 /HPF (0-4)
== END 2021-09-02 01:52 | disposition home or self-care (01) ==
LOC: 3 SO LND 23:13
PROVIDERS: ADMIT Obstetrics & Gynecology; ATTEND Obstetrics & Gynecology
DX: O99.891 Other specified diseases and conditions complicating pregnancy (principal); M54.50 Low back pain, unspecified; Z3A.33 33 weeks gestation of pregnancy; Z79.899 Other long term (current) drug therapy
CPT/HCPCS: 59025; 81001; 87086; G0378; G0379

== ENCOUNTER 2021-09-05 11:31 | Observation (INO) | payer OTHER ==
[2021-09-05] MEDS ORDERED: IV RINGERS,LACTATED 1000ML 1,000 ML IV PRN (12:30)
[2021-09-05 12:40] LABS: BILIRUBIN,URINE NEGATIVE (NEG); CLARITY,URINE CLOUDY; COLOR,URINE YELLOW; NITRITE,URINE NEGATIVE (NEG); PH,URINE 7.5 (<5.0-8.0); PROTEIN,URINE NEGATIVE (NEG-TRACE)
[2021-09-05 12:46] LABS: BACTERIA,URINE MODERATE /HPF (0-FEW); RBC,URINE OCC /HPF (0-2)
== END 2021-09-05 13:20 | disposition home or self-care (01) ==
LOC: 3 SO LND 11:31
PROVIDERS: ADMIT Obstetrics & Gynecology; ATTEND Obstetrics & Gynecology
DX: O26.893 Other specified pregnancy related conditions, third trimester (principal); R10.2 Pelvic and perineal pain; Z3A.33 33 weeks gestation of pregnancy
CPT/HCPCS: 59025; 81001; 87086; G0378; G0379

== ENCOUNTER → 2021-09-06 | Outpatient (CLI) | payer OTHER ==
[~2021-09-06] MED LIST changes: +OXYC1TAB15 PO
--- NOTE | 2021-09-06 16:53 | RAD ---
EXAM: OBSTETRIC ULTRASOUND. HISTORY: Size/date discrepancy. COMPARISON: 05/09/2021. FINDINGS: Sonographic evaluation of the uterus, fetus and maternal pelvis was performed. There is a single fetus in breech presentation. heart rate is 141 bpm. Estimated gestational ag e based on measurements is 34 weeks 0 days. Head circumference, biparietal diameter, abdominal circum ference and femur length are commensurate. Estimated weight is 2314 g, at 47th percentile. The placenta is anterior. There is no evidence of placenta previa. Amniotic fluid volume appears norm al with amniotic fluid index 10.9 cm. The cervix is closed and measures 3.4 cm. The stomach and bladder are visualized. Images of the kidneys reveal no hydronephrosis. The heart is four-chamber. There is no hydrocephalus. The maternal adnexa are obscured by positioning currently. No abnormality is seen. IMPRESSION: 1. Single fetus in breech presentation. heart rate 141 bpm. Estimated gestational age based on measurements 34 weeks 0 days. Electronically signed by: Deisy Luna MD (09/06/2021 4:51 PM) [facility]
[2021-09-16 12:02] VITALS: BP 118/75
== END ==
LOC: US 15:30
PROVIDERS: ATTEND Obstetrics & Gynecology
DX: O32.1XX0 Maternal care for breech presentation, not applicable or unspecified (principal); O26.843 Uterine size-date discrepancy, third trimester; Z3A.34 34 weeks gestation of pregnancy
CPT/HCPCS: 76815